=== PATIENT | female | born 1950 | race Caucasian/White ===

== ENCOUNTER 2020-01-20 13:48 | Outpatient (CLI) | payer MEDICARE, SELFPAY ==
--- NOTE | 2020-01-20 13:54 | MM_ITS ---
WS: [id number] BILATERAL DIGITAL SCREENING MAMMOGRAM WITH CAD CLINICAL INFORMATION: SCREENING HISTORY: Screening mammogram. No current complaints. COMPARISON: TECHNIQUE: Bilateral CC and MLO. FINDINGS: The breast are composed of extremely dense tissue, which can limit the detection of small underlying mass lesions. Lucent centered calcifications. No suspicious focal mass, asymmetry, calcifications, or architectural distortion. No evidence of malignancy. MM/[place] [id number] IMPRESSION: BI-RADS: 2-Benign FOLLOW UP: 1 Year Follow-up Recommend return to annual screening mammography.
--- NOTE | 2020-01-20 14:41 | XR_ITS ---
WS: [id number] DEXA (DUAL ENERGY X-RAY ABSORPTIOMETRY) Bone mineral density was performed using a [employer] machine. HISTORY: OSTEOPOROSIS COMPARISON: 03/19/2017 Lumbar spine BMD (L1-L4): 1.040 g/cm2 T score: -1.2 Z score: 0.9 Total hip BMD: Left: 0.760 g/cm2. T score: -2.0 Z score: -0.3 Right: 0.747 g/cm2. T score: -2.1 Z score: -0.4 10 year probability of a major osteoporotic fracture is 36%. Compared to the prior study from 03/19/2017. Lumbar spine bone mineral density has decreased by 0.6%. Bilateral hips bone mineral density has decreased by 0.3%. XR/XR DEXA axial skeleton* [id number] IMPRESSION: OSTEOPENIA based upon the WHO classification for females. No significant change of bone mineral density since the prior study.
== END 2020-01-20 13:49 | disposition home or self-care (01) ==
LOC: RADSHAW 13:51
PROVIDERS: Family Provider Family Medicine; PCP Family Medicine; Visit Provider Family Medicine
DX: Z12.31 Encounter for screening mammogram for malignant neoplasm of breast (principal); M81.0 Age-related osteoporosis without current pathological fracture
CPT/HCPCS: 77067; 77080

== ENCOUNTER → 2020-02-08 12:49 | Outpatient (BNVA) | payer MEDICARE, SELFPAY | PROVIDERS: Family Provider Family Medicine; PCP Family Medicine; Visit Provider Internal Medicine Rheumatology | DX: M19.041 Primary osteoarthritis, right hand (principal); M19.042 Primary osteoarthritis, left hand; Z79.899 Other long term (current) drug therapy; M81.0 Age-related osteoporosis without current pathological fracture; F17.210 Nicotine dependence, cigarettes, uncomplicated; M16.0 Bilateral primary osteoarthritis of hip; G95.89 Other specified diseases of spinal cord; M19.072 Primary osteoarthritis, left ankle and foot; M19.071 Primary osteoarthritis, right ankle and foot; M19.90 Unspecified osteoarthritis, unspecified site; Z71.6 Tobacco abuse counseling | CPT/HCPCS: 36415; 72170; 73130; 73630; 80076; 82306; 82565; 85025; 99204 ==

== ENCOUNTER → 2020-02-08 13:51 | Outpatient (BNVA) | payer MEDICARE, SELFPAY | PROVIDERS: Family Provider Family Medicine; PCP Family Medicine; Visit Provider Internal Medicine Rheumatology | DX: M19.041 Primary osteoarthritis, right hand (principal); M19.042 Primary osteoarthritis, left hand; Z79.899 Other long term (current) drug therapy; M19.90 Unspecified osteoarthritis, unspecified site; M81.0 Age-related osteoporosis without current pathological fracture; Z71.6 Tobacco abuse counseling; M16.0 Bilateral primary osteoarthritis of hip; G95.89 Other specified diseases of spinal cord; M19.072 Primary osteoarthritis, left ankle and foot; M19.071 Primary osteoarthritis, right ankle and foot | CPT/HCPCS: 85025 ==

== ENCOUNTER 2020-02-08 14:04 | Outpatient (CLI) | payer MEDICARE, SELFPAY ==
--- NOTE | 2020-02-08 14:25 | XR_ITS ---
WS: [id number] PELVIS: AP VIEW SUBMITTED HISTORY: osteoarthritis COMPARISON: None available. Bones and soft tissues of the pelvis are intact. No fracture or dislocation. Small focal area of scle rosis involving the central LEFT joint. No erosions. No effusions. Mild joint space narrowing at the hips. XR/XR pelvis 1-2V* [id number] IMPRESSION: 1. Mild bilateral hip joint osteoarthritis. 2. Focal sclerosis central LEFT SI joint.
--- NOTE | 2020-02-08 14:25 | XR_ITS ---
WS: [id number] LEFT HAND: 3 VIEW(S) TECHNIQUE: PA, oblique and lateral. HISTORY: osteoarthritis COMPARISON: None available. No acute fracture or dislocation. Severe interphalangeal joint space narrowing. Osteophyte formation with loss of joint space and mild soft tissue edema around the interphalangeal joints. Mild narrowing of the first carpometacarpal join t space. No erosions. XR/XR hand LT min 3V* [id number] IMPRESSION: Advanced interphalangeal joint space narrowing, likely osteoarthritis.
--- NOTE | 2020-02-08 14:25 | XR_ITS ---
WS: [id number] RIGHT FOOT: 3 VIEW(S) TECHNIQUE: PA, oblique and lateral. HISTORY: osteoarthritis COMPARISON: None available. No acute fracture or dislocation. Normal tarsal/metatarsal alignment. Mild narrowing of the interphalangeal joint space. Enthesopathy Achilles tendon. XR/XR foot RT min 3V* [id number] IMPRESSION: Mild osteoarthritis.
--- NOTE | 2020-02-08 14:25 | XR_ITS ---
WS: [id number] RIGHT HAND: 3 VIEW(S) TECHNIQUE: PA, oblique and lateral. HISTORY: osteoarthritis COMPARISON: None available. No acute fracture or dislocation. There is extensive narrowing of the IP joints throughout the hand. Most significant changes involve t he PIP joint of the third finger. There are erosive changes with joint space narrowing and also perio stitis. There is hypertrophic bone formation. There is soft tissue edema at the level of the interpha langeal joints. Mild narrowing of the first carpometacarpal joint. No metacarpal head erosions. XR/XR hand RT min 3V* [id number] IMPRESSION: 1. Consider erosive osteoarthritis. Differential should also include psoriatic arthritis. 2. Component of osteoarthritis may also be present.
--- NOTE | 2020-02-08 14:25 | XR_ITS ---
WS: [id number] LEFT FOOT: 3 VIEW(S) TECHNIQUE: PA, oblique and lateral. HISTORY: osteoarthritis COMPARISON: None available. No acute fracture or dislocation. Normal tarsal/metatarsal alignment. Mild interphalangeal joint space. No erosions. XR/XR foot LT min 3V* [id number] IMPRESSION: Mild osteoarthritis.
== END 2020-02-08 14:05 | disposition home or self-care (01) ==
PROVIDERS: Family Provider Family Medicine; PCP Family Medicine; Visit Provider Internal Medicine Rheumatology
DX: M19.041 Primary osteoarthritis, right hand (principal); M19.042 Primary osteoarthritis, left hand; M16.0 Bilateral primary osteoarthritis of hip; G95.89 Other specified diseases of spinal cord; M19.072 Primary osteoarthritis, left ankle and foot; M19.071 Primary osteoarthritis, right ankle and foot
CPT/HCPCS: 72170; 73130; 73630; 80076; 82306; 82565

== ENCOUNTER → 2020-05-10 13:50 | Outpatient (BNVA) | payer MEDICARE, SELFPAY | PROVIDERS: Family Provider Family Medicine; PCP Family Medicine; Visit Provider Internal Medicine Rheumatology | DX: M19.041 Primary osteoarthritis, right hand (principal); M19.042 Primary osteoarthritis, left hand; Z79.899 Other long term (current) drug therapy; M81.0 Age-related osteoporosis without current pathological fracture; F17.210 Nicotine dependence, cigarettes, uncomplicated; M85.89 Other specified disorders of bone density and structure, multiple sites; M16.0 Bilateral primary osteoarthritis of hip | CPT/HCPCS: 99214 ==

== ENCOUNTER 2020-08-22 13:05 | Outpatient (CLI) | payer MEDICARE, SELFPAY ==
[2020-08-22 13:09] VITALS: BP 147/76; PULSE 63; RESP 16; TEMP 36.7; O2SAT 96
[2020-08-22] MEDS: denosumab 60 mg SDV SUBCUT (13:15)
[2020-08-22 13:32] VITALS: BMI 20.2
[2020-08-22 13:47] VITALS: BP 143/76; PULSE 60; RESP 16; TEMP 36.7; O2SAT 96
== END 2020-08-22 13:06 | disposition home or self-care (01) ==
LOC: RHEOACUTE 13:06
PROVIDERS: Family Provider Family Medicine; PCP Family Medicine; Visit Provider Internal Medicine Rheumatology
DX: M81.0 Age-related osteoporosis without current pathological fracture (principal)
CPT/HCPCS: 96372; J0897

== ENCOUNTER → 2020-12-18 13:48 | Outpatient (BNVA) | payer MEDICARE, SELFPAY | PROVIDERS: Family Provider Family Medicine; PCP Family Medicine; Visit Provider Internal Medicine Rheumatology | DX: M19.041 Primary osteoarthritis, right hand (principal); M19.042 Primary osteoarthritis, left hand; Z79.899 Other long term (current) drug therapy; M81.0 Age-related osteoporosis without current pathological fracture; M16.10 Unilateral primary osteoarthritis, unspecified hip; M47.816 Spondylosis without myelopathy or radiculopathy, lumbar region; F17.210 Nicotine dependence, cigarettes, uncomplicated; Z87.81 Personal history of (healed) traumatic fracture | CPT/HCPCS: 99213; 99214 ==

== ENCOUNTER 2021-02-25 13:54 | Outpatient (CLI) | payer MEDICARE, SELFPAY ==
[2021-02-25] MEDS: denosumab 60 mg SDV SUBCUT (14:10)
== END 2021-02-25 13:55 | disposition home or self-care (01) ==
PROVIDERS: PCP Family Medicine; Visit Provider Internal Medicine Rheumatology
DX: M81.0 Age-related osteoporosis without current pathological fracture (principal)
CPT/HCPCS: 96372; J0897

== ENCOUNTER → 2021-07-16 13:23 | Outpatient (BNVA) | payer MEDICARE, SELFPAY | PROVIDERS: PCP Family Medicine; Visit Provider Urology | DX: C67.9 Malignant neoplasm of bladder, unspecified (principal); Z85.51 Personal history of malignant neoplasm of bladder | CPT/HCPCS: 81003 ==

== ENCOUNTER 2021-08-29 11:39 | Outpatient (CLI) | payer MEDICARE, SELFPAY ==
[2021-08-29 11:53] VITALS: BP 144/67; PULSE 71; RESP 18; TEMP 36.9; O2SAT 98
[2021-08-29] MEDS: denosumab 60 mg SDV SUBCUT (12:00)
[2021-08-29 12:10] VITALS: BP 132/68; PULSE 72; RESP 18; TEMP 37.4; O2SAT 98
== END 2021-08-29 11:40 | disposition home or self-care (01) ==
LOC: ONCMED 11:42
PROVIDERS: PCP Family Medicine; Referring Provider Family Medicine; Visit Provider Family Medicine
DX: M81.0 Age-related osteoporosis without current pathological fracture (principal)
CPT/HCPCS: 96372; J0897

== ENCOUNTER 2022-03-05 09:35 | Outpatient (CLI) | payer MEDICARE, SELFPAY ==
--- NOTE | 2022-03-05 09:52 | MM_ITS ---
WS: [id number] BILATERAL 3D TOMOSYNTHESIS DIGITAL SCREENING MAMMOGRAM WITH CAD CLINICAL INFORMATION: SCREEN HISTORY: Screening mammogram. No current complaints. COMPARISON: January 20, 2020 TECHNIQUE: Bilateral CC and MLO. FINDINGS: The breast are composed of extremely dense tissue, which can limit the detection of small underlying mass lesions. Punctate and lucent centered calcifications. No suspicious focal mass, asymmetry, calci fications, or architectural distortion. No evidence of malignancy. MM/[place] [id number] IMPRESSION: BI-RADS: 2-Benign FOLLOW UP: 1 Year Follow-up Recommend return to annual screening mammography.
== END 2022-03-05 09:36 | disposition home or self-care (01) ==
LOC: RAD 09:38
PROVIDERS: PCP Family Medicine; Visit Provider Family Medicine
DX: Z12.31 Encounter for screening mammogram for malignant neoplasm of breast (principal)
CPT/HCPCS: 77063; 77067

== ENCOUNTER 2022-03-05 10:18 | Outpatient (CLI) | payer MEDICARE, SELFPAY ==
[2022-03-05 10:28] VITALS: BP 121/73; PULSE 67; RESP 18; TEMP 37.1; O2SAT 97
[2022-03-05] MEDS: denosumab 60 mg SDV SUBCUT (10:47)
[2022-03-05 10:54] VITALS: BP 120/65; PULSE 56; RESP 18; TEMP 37.1; O2SAT 99
== END 2022-03-05 10:19 | disposition home or self-care (01) ==
PROVIDERS: PCP Family Medicine; Referring Provider Family Medicine; Visit Provider Family Medicine
DX: M81.0 Age-related osteoporosis without current pathological fracture (principal)
CPT/HCPCS: 96372; J0897

== ENCOUNTER 2022-09-10 13:22 | Outpatient (CLI) | payer MEDICARE, SELFPAY ==
[2022-09-10 13:41] VITALS: BP 143/75; PULSE 68; RESP 18; TEMP 36.8; O2SAT 99
[2022-09-10] MEDS: denosumab 60 mg SDV SUBCUT (13:47)
[2022-09-10 13:53] VITALS: BP 132/81; PULSE 68; RESP 18; TEMP 36.9; O2SAT 97
== END 2022-09-10 13:23 | disposition home or self-care (01) ==
LOC: ONCMED 13:23
PROVIDERS: PCP Family Medicine; Visit Provider Family Medicine
DX: M81.0 Age-related osteoporosis without current pathological fracture (principal)
CPT/HCPCS: 96372; J0897

== ENCOUNTER 2023-04-02 14:05 | Oncology outpatient (recurring) (ONCR) | payer MEDICARE, SELFPAY ==
[2023-04-02] MEDS: denosumab 60 mg SDV SUBCUT (14:42)
== END 2023-04-29 23:59 | disposition home or self-care (01) ==
PROVIDERS: PCP Family Medicine; Visit Provider Family Medicine
DX: M81.0 Age-related osteoporosis without current pathological fracture (principal)
CPT/HCPCS: 96372; J0897

== ENCOUNTER 2023-06-05 12:36 | Outpatient (CLI) | payer MEDICARE, SELFPAY ==
--- NOTE | 2023-06-05 13:14 | MM_ITS ---
WS: [id number] Bilateral screening 3D tomosynthesis digital mammogram, 06/05/2023 Clinical Data: SCREENING Comparison: 03/05/2022, 01/20/2020, 03/19/2017, 02/21/2016. Findings: The breast parenchymal pattern shows extreme density. No spiculated masses or clustered calcification s are seen. There are no secondary signs of carcinoma. There are scattered benign calcifications in b oth breasts. There are mole markers on the left breast. MM/[place] [id number] Impression: 1. Negative bilateral mammogram unchanged. 2. Recommend annual screening mammograms. BIRADS: 1-Negative FOLLOW UP: 1 Year Follow-up The CAD invoice checker was used.
== END 2023-06-05 12:37 | disposition home or self-care (01) ==
LOC: RAD 12:37
PROVIDERS: PCP Family Medicine; Visit Provider Family Medicine
DX: Z12.31 Encounter for screening mammogram for malignant neoplasm of breast (principal)
CPT/HCPCS: 77063; 77067

== ENCOUNTER 2024-03-01 08:01 | Outpatient (CLI) | payer MEDICARE, SELFPAY ==
--- NOTE | 2024-03-01 08:12 | CT_ITS ---
WS: [id number] CT NECK TECHNIQUE: Contrast-enhanced CT of the neck with coronal and sagittal reformatted images. CLINICAL INFORMATION: R PAROTID GLAND MASS COMPARISON: None. DLP: 127.[address] scans at [facility] use at least one of these dose optimization techniques: automated e xposure control; mA and/or kV adjustment per patient size (includes targeted exams where dose is matc hed to clinical indication); or iterative reconstruction. FINDINGS: Parotid glands are normal in appearance. Normal submandibular glands. Dental artifact degrades some i mages at the tongue base. Normal posterior nasopharynx. Normal parapharyngeal fat. Normal Mcgregor to nsils. No evidence of supraglottic or glottic mass. Normal subglottic airway. A few tiny subcentimeter thyroid nodules. A few hazy opacities at the lung apices may be inflammatory . Recommend chest CT follow-up. Partially visualized paranasal sinuses and mastoid air cells are well aerated. No cervical lymphadeno williams. IMPRESSION: 1. No acute neck findings. 2. No evidence of suspicious mass or lesion in the RIGHT parotid gland. 3. Normal submandibular glands. 4. Few hazy groundglass opacities in the lung apices. Recommend follow-up chest CT. 5. Few tiny subcentimeter nodules in the thyroid gland. 6. Mild LEFT greater than RIGHT carotid bulb calcification.
[2024-03-01 08:49] LABS: Blood Urea Nitrogen 9 mg/dL (8-23)
[2024-03-01] MEDS: iohexol 350 mg/mL 500 mL Btl (per mL) IV (09:00)
== END 2024-03-01 08:02 | disposition home or self-care (01) ==
LOC: RAD 08:02
PROVIDERS: Radiology Diagnostic Radiology; PCP Family Medicine; Visit Provider Family Medicine
DX: R22.1 Localized swelling, mass and lump, neck (principal); I65.21 Occlusion and stenosis of right carotid artery
CPT/HCPCS: 70491; 82565; 84520; Q9967

== ENCOUNTER 2025-01-24 14:41 | Outpatient (CLI) | payer MEDICARE, SELFPAY ==
--- NOTE | 2025-01-24 14:48 | CT_ITS ---
WS: [id number] CT NECK TECHNIQUE: Contrast-enhanced CT of the neck with coronal and sagittal reformatted images. CLINICAL INFORMATION: SIALOADENITIS COMPARISON: None. DLP: 153.[address] scans at [facility] use at least one of these dose optimization techniques: automated exposure control; mA and/or kV adjustment per patient size (includes targeted exams where dose is matched to clinical indication); or iterative reconstruction. FINDINGS: Paranasal sinuses are well aerated. Mastoid air cells are well aerated. Normal posterior nasopharynx. Normal parapharyngeal fat. Normal submandibular glands. Parotid glands are normal in appearance. Normal posterior nasopharynx. Normal parapharyngeal fat. No evidence of supraglottic or glottic mass. Normal subglottic airway. A few tiny thyroid nodules. Mild spondylitic changes. Few hazy groundglass opacities in the lung apices unchanged compared to previous. Recommend follow-up chest CT. CT/CT neck w con* [id number] IMPRESSION: 1. No acute neck findings. 2. Normal salivary glands. 3. No cervical lymphadenopathy.
[2025-01-24 15:13] LABS: Blood Urea Nitrogen 16 mg/dL (8-23)
[2025-01-24] MEDS: iohexol 350 mg/mL 500 mL Btl (per mL) IV (15:24)
== END 2025-01-24 14:42 | disposition home or self-care (01) ==
LOC: RAD 14:42
PROVIDERS: PCP Family Medicine; Visit Provider Specialist
DX: K11.20 Sialoadenitis, unspecified (principal); M47.9 Spondylosis, unspecified; R91.8 Other nonspecific abnormal finding of lung field
CPT/HCPCS: 70491; 82565; 84520

== ENCOUNTER 2025-05-31 12:21 | Outpatient (CLI) | payer MEDICARE, SELFPAY ==
--- NOTE | 2025-05-31 12:27 | MM_ITS ---
WS: [id number] BILATERAL 3D TOMOSYNTHESIS DIGITAL SCREENING MAMMOGRAM WITH CAD CLINICAL INFORMATION: SCREENING HISTORY: Screening mammogram. No current complaints. COMPARISON: 2022 TECHNIQUE: Bilateral CC and MLO. FINDINGS: The breast are composed of extremely dense tissue, which can limit the detection of small underlying mass lesions. No suspicious focal mass, asymmetry, calcifications, or architectural distortion. No evidence of malignancy. Incidental punctate and lucent centered calcifications. MM/MM [facility] tomosynthesis [id number] IMPRESSION: DENSITY: The breasts are heterogeneously dense, which may obscure small masses. BI-RADS: 2 - Benign FOLLOW UP: 1 Year Follow-up Recommend return to annual screening mammography.
== END 2025-05-31 12:22 | disposition home or self-care (01) ==
LOC: RAD 12:22
PROVIDERS: PCP Family Medicine; Visit Provider Family Medicine
DX: Z12.31 Encounter for screening mammogram for malignant neoplasm of breast (principal); R92.343 Mammographic extreme density, bilateral breasts; R92.1 Mammographic calcification found on diagnostic imaging of breast
CPT/HCPCS: 77063; 77067

== ENCOUNTER 2025-06-05 07:13 | Outpatient (CLI) | payer MEDICARE, SELFPAY ==
--- NOTE | 2025-06-05 07:16 | CT_ITS ---
WS: [id number] LDCT LUNG CANCER SCREENING TECHNIQUE: Noncontrast CT of the chest with coronal and sagittal reformatted images. CLINICAL INFORMATION: NICOTINE DEPENDENCE COMPARISON: None. DLP: 45.89 mGy.cm DIvol: Mean CTDIvol: 0.80 (mGy) All CT scans at [facility] use at least one of these dose optimization techniques: automated exposure control; mA and/or kV adjustment per patient size (includes targeted exams where dose is matched to clinical indication); or iterative reconstruction. FINDINGS: 3.6 mm noncalcified nodule LEFT lower lobe laterally . Small RIGHT perifissural nodules. Several subcentimeter RIGHT upper RIGHT lower lobe nodules. Subsegmental atelectasis in the lung bases. A few scattered hazy opacities in the upper and lower lobes likely inflammatory. Aortic calcification. Coronary calcification. No mediastinal or hilar lymphadenopathy. No axillary lymphadenopathy. Small esophageal hiatal hernia. Adrenal glands are normal. Mild thoracic curve. Mild thoracic kyphosis. Chronic appearing compression with anterior wedging at T12 and L1. CT/CT lung screening [id number] IMPRESSION: LUNG-RADS: 2-Benign Appearance or Behavior FOLLOW UP: 12 Month: Continue annual screening with LDCT
== END 2025-06-05 07:14 | disposition home or self-care (01) ==
LOC: RAD 07:13
PROVIDERS: PCP Family Medicine; Visit Provider Family Medicine
DX: Z12.2 Encounter for screening for malignant neoplasm of respiratory organs (principal); J43.1 Panlobular emphysema; R91.8 Other nonspecific abnormal finding of lung field; F17.210 Nicotine dependence, cigarettes, uncomplicated
CPT/HCPCS: 71271